=== PATIENT | male | born 1970 | race Caucasian/White ===

== ENCOUNTER 2016-11-24 16:05 | Emergency (ER) | payer OTHER ==
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
[~2016-11-24 16:05] MED LIST: ACULAR LS5 ML OP; FLEXERIL PO; MUCINEX DM ER1 EAC1 PO; NO MEDICATIONS; NYQUIL D COLD295 ML PO; ULTRAM PO; VICODIN 5/500 T1 TAB PO; ZITHROMAX PO
== END 2016-11-24 17:06 | disposition home or self-care (01) ==
LOC: CFTX 16:05
DX: S39.012A Strain of muscle, fascia and tendon of lower back, initial encounter (principal); V49.10XA Passenger injured in collision with unspecified motor vehicles in nontraffic accident, initial encounter
CPT/HCPCS: 72100; 72202; 96372; 99283; 99284; J1885